=== PATIENT | female | born 1955 | race Caucasian/White ===

== ENCOUNTER 2021-06-24 13:52 | Outpatient (CLI) | payer BC, SELFPAY ==
--- NOTE | ~2021-06-24 | DEXA_ITS ---
Bone Density Report Name: Brynn Whiting Age: 66 Sex: Female Ethnicity: White Date of : 1955 Indication: postmenopausal; Referring Provider: Munira Hart Study: Bone densitometry was performed. Exam Date: June 24, 2021 Accession number: [id number] Bone Density: Region BMD T-score Z-score Classification AP Spine (L1-L4) 1.059 0.1 1.9 Normal Femoral Neck (Left) 0.834 -0.1 1.4 Normal Total Hip (Left) 1.034 0.8 2.0 Normal Total Hip Bilateral Avg 1.015 0.6 1.8 Normal Femoral Neck (Right) 0.813 -0.3 1.2 Normal Total Hip (Right) 0.994 0.4 1.6 Normal World Health Organization criteria for BMD impression classify patients as: Normal (T-score at or above -1.0), Osteopenia (T-score between -1.0 and -2.5), or Osteoporosis (T-score at or below -2.5). 10-year Fracture Risk: FRAX not reported because: All T-scores for Spine Total, Hip Total, Femoral Neck at or above -1.0 Previous Exams: Region Exam Age BMD T-score BMD Change BMD Change Date g/cm2 vs Baseline vs Previous AP Spine(L1-L4) 06/24/2021 66 1.059 0.1 -0.060(-5.4%)# -0.060(-5.4%)# 08/14/2009 54 1.119 0.7 Total Hip(Left) 06/24/2021 66 1.034 0.8 0.002(0.2%)# 0.002(0.2%)# 08/14/2009 54 1.032 0.7 Total Hip(Right) 06/24/2021 66 0.994 0.4 -0.005(-0.5%)# -0.005(-0.5%)# 08/14/2009 54 0.999 0.5 *Denotes significance at 95% confidence level, LSC for AP Spine = 0.022 g/cm2, LSC for Total Hip = 0.027 g/cm2 Clinical Information Provided by Patient: Patient maximum height was 62 Menopause Age: 51 Drinks caffeinated beverages Onset of menses at age 15 Number of children 3 Impression: The patient has normal bone mass. No significant bone loss was observed. Discussion: BONE DENSITY IS ABOVE THE MINIMUM DESIRABLE LEVEL AT ALL SKELETAL SITES TESTED. This patient?s bone mineral density is above the minimum desirable level (T-score -1.0 or better) at all sites measured. The patient should follow a healthful lifestyle (good nutrition with adequate calcium and vitamin D, and appropriate weight-bearing exercise). Follow-Up: Consider repeating this study in 5 years or sooner if there is some new clinical indication. Reported by: TRACY on 06/24/2021 2:17:00 PM. Reviewed, dictated and finalized at location ARosemary CRAWFORD
--- NOTE | ~2021-06-24 | MM_ITS ---
EXAMINATION: MM screening [facility] BI w gali HISTORY: Screening TECHNIQUE: Craniocaudal and mediolateral oblique 3-D tomosynthesis images were obtained and synthetic 2-D images were generated. CAD analysis was submitted and interpreted. COMPARISON: Comparison to multiple prior studies sequentially, with oldest reviewed study dated 06/2011. BREAST PARENCHYMAL COMPOSITION: There are scattered areas of fibroglandular density. FINDINGS: There is no evidence of suspicious mass, calcification, or architectural distortion to sugg est malignancy in either breast. There has been no suspicious interval change. IMPRESSION: 1. No mammographic evidence of malignancy. 2. Recommend routine screening mammography in one year. BI-RADS Category 1: Negative Reviewed, dictated and finalized at location A.
== END 2021-06-24 13:53 | disposition home or self-care (01) ==
PROVIDERS: PCP Family Medicine Sports Medicine; Visit Provider Obstetrics & Gynecology
DX: Z12.31 Encounter for screening mammogram for malignant neoplasm of breast (principal); M81.0 Age-related osteoporosis without current pathological fracture
CPT/HCPCS: 77063; 77067; 77080

== ENCOUNTER 2023-07-26 09:46 | Outpatient (CLI) | payer BC, SELFPAY ==
--- NOTE | ~2023-07-26 | MM_ITS ---
EXAMINATION: MM screening [facility] BI w gali HISTORY: Screening mammogram TECHNIQUE: Craniocaudal and mediolateral oblique 3-D tomosynthesis images were obtained and synthetic 2-D images were generated. CAD analysis was submitted and interpreted. COMPARISON: 06/24/2021 bilateral screening mammogram BREAST PARENCHYMAL COMPOSITION: There are scattered areas of fibroglandular density. FINDINGS: There is no evidence of suspicious mass, calcification, or architectural distortion to sugg est malignancy in either breast. There has been no suspicious interval change. IMPRESSION: 1. No mammographic evidence of malignancy. 2. Recommend routine screening mammography in one year. BI-RADS Category 1: Negative Reviewed, dictated and finalized at location A.
== END 2023-07-26 09:47 | disposition home or self-care (01) ==
PROVIDERS: PCP Family Medicine Sports Medicine; Visit Provider Obstetrics & Gynecology
DX: Z12.31 Encounter for screening mammogram for malignant neoplasm of breast (principal)
CPT/HCPCS: 77063; 77067

== ENCOUNTER 2024-12-13 09:43 | Outpatient (CLI) | payer BC, SELFPAY ==
--- NOTE | ~2024-12-13 | MM_ITS ---
EXAMINATION: MM screening [facility] BI w gali HISTORY: Screening TECHNIQUE: Craniocaudal and mediolateral oblique 3-D tomosynthesis images were obtained and synthetic 2-D images were generated. CAD analysis was submitted and interpreted. COMPARISON: Comparison to multiple prior studies sequentially, with oldest reviewed study dated 06/24. BREAST PARENCHYMAL COMPOSITION: Not dense: There are scattered areas of fibroglandular density. FINDINGS: There is no evidence of suspicious mass, calcification, or architectural distortion to sugg est malignancy in either breast. There has been no suspicious interval change. IMPRESSION: 1. No mammographic evidence of malignancy. 2. Recommend routine screening mammography in one year. BI-RADS Category 1: Negative Reviewed, dictated and finalized at location A. [facility]
--- OUTSIDE RECORDS SUMMARY | 2024-12-13 10:20 | XMS_ITS | Encounter Summary ---
Author Organization [facility] Address [address] [place] [address] Care Team Providers Care Quilt Stuffer Name Role Phone Unavailable Primary Care Provider Unavailabl e Encounter Details Date Type Department Care Team (Late st Contact Info) Description 11/02/2018 Lab Requisition [facility] [address] [place] [id number] Tawanda Delgadillo MD [address] [place] [address] Social History Tobacco Use Types Packs/Day Years Used Date Smoking Tobacco: Never Assessed Sex and Gender Information Value Date Recorded Sex Assigned at Not on file Gender Identity Not on file Sexual Orientation Not on file documented as of this encounter Plan of Treatment Not on file documented as of this encounter Procedures Procedure Name Priority Date/Time Associated Diagnosis Comments DERMATOPATHOLOGY Routine 11/01/2018 12:0 0 AM AUTOMOBILE MECHANIC HELPER documented in this encounter Results * DERMATOPATHOLOGY (11/01/2018 12:00 AM AUTOMOBILE MECHANIC HELPER) Case Report Dermatopathology Report ? Case: [id number] ? Authorizing Provider: ??Tawanda Delgadillo MD ?Collected: ? 11/01/2018 12:00 AM ? Pathologist: ? Malika Guadarrama MD ? Received: ?11/02/2018 12:36 PM ? Specimen: ?Skin, above left brow ? 11:52 AM [facility]ERMAT[facility] Final Diagnosis Specimen A. SKIN, above left brow: BENIGN VERRUCOUS KERATOSIS (L82.1) 11:52 AM [facility]MAT[facility] Clinical History R/O ISK vs BCC. 11:52 AM [facility] Gross Description Specimen A: Received is one formalin filled container labeled with the patient's name and designated above left brow. The specimen consists of a shave biopsy measuring [id number]. Jar 0. 11:52 AM [facility]MAT[facility] Microscopic Description Specimen A. SKIN, above left brow: Sections show hyperkeratosis, papillomatosis, hypergranulosis, and acanthosis. These histological findings can be seen in a verruca vulgaris or a seborrheic keratosis. 11:52 AM [facility] Disclaimer An external and internal positive and negative controls are appropriate for the histochemical, immunohistochemical and immunofluorescence stain(s) in this case (if any), except where stated explicitly. The performance characteristics of the stain(s) cited in this report were developed and its performance characteristic determined by the Dermatopathology Laboratory at [facility]. These tests need not be, and therefore are not, approved by the [place] Food and Drug Administration. The tests are used for clinical purposes. Billing Codes Specimen Charges Stain Charges 09701 1 11:52 AM [facility] Embedded Images 11:52 AM [facility]MAT[facility] Pathology/Cytolog y TISSUE SPECIMEN FROM SKIN / Unknown 11/01/2018 11/02/2018 12:36 PM AUTOMOBILE MECHANIC HELPER Tawanda Delgadillo MD LAB - PATHOLOGY/CYTO LOGY ORDERABLES DERMATOPATHOLOGY LABORATORY [facility] - Department of Dermatology [facility], 5th Floor Lab [address] [phone] documented in this encounter Visit Diagnoses Not on filedocumented in this encounter
--- OUTSIDE RECORDS SUMMARY | 2024-12-13 10:20 | XMS_ITS | Clinical Summary ---
Author Organization [facility] Address [address] [place] [address] Care Team Providers Care Music Store Manager Name Role Phone Unavailable Primary Care Provider Unavailabl e Source Comments [facility],non-owned Affiliates and Associated Physician Practices is amultiple site organization consisting of ambulatory clinics and hospital sitesin [place], [place], [place] and [place]. This disclosure is being madepursuant to the Care Everywhere program and may not contain all information available regarding this patient. Last updated 18.[facility] [employer] Social History Tobacco Use Types Packs/Day Years Used Date Smoking Tobacco: Never Assessed Sex and Gender Information Value Date Recorded Sex Assigned at Not on file Gender Identity Not on file Sexual Orientation Not on file Plan of Treatment Health Maintenance Due Date Last Done Comments BONE DENSITY TESTING 1955 COLOGUARD (AGES 45-75) - COL ON CA SCREENING 1955 COLON MONITORING 1955 COLONOSCOPY - COLON CA SCREENING 1955 CT COLONOGRAPHY - COLON CA SCREENING 1955 Colorectal Cancer Screening 1955 FIT - COLON CA SCREENING 1955 FLEX SIG - COLON CA SCREENING 1955 LIPID TESTING 1955 MAMMOGRAM 1955 HEPATITIS C SCREENING 05/31/1974 DTAP/TDAP/TD VACCINES (1 - Tdap) 1975 PNEUMOCOCCAL VACCINE 50+ (1 of 1 - PCV) 2006 ZOSTER VACCINE (1 of 2) 2006 COVID-19 VACCINE (1 - 2023-2 5 season) 2024 INFLUENZA VACCINE (#1) 2024 DEPRESSION SCREENING 11/14/2024 Respiratory Syncytial Virus (RSV) Vaccine Pt: or over 60 yrs (1 - 1-dose 75+ series) 2031 HEPATITIS B VACCINE Aged Out No longe r eligible based on patient's age to complete this topic HIB VACCINE Aged Out No longer eligi ble based on patient's age to complete this topic HPV VACCINE Aged Out No longer eligi ble based on patient's age to complete this topic MENINGOCOCCAL (Group B) VACCINE Aged Out No longer eligible based on patient's age to complete this topic MENINGOCOCCAL VACCINE Aged Out No tonja ana maria eligible based on patient's age to complete this topic
--- OUTSIDE RECORDS SUMMARY | 2024-12-13 10:20 | XMS_ITS | Continuity of Care Document ---
Author Organization [facility] Address [address] [place] [address] Phone Care Team Providers Care Gameplay Engineer Name Role Phone Araceli Montoya MD Unavailable Unavailable Allergies, Adverse Reactions, Alerts Substance Reaction Status Criticality Sulfa (Sulfonamide Antibiotics) Active No Information Medications Medication Instructions Dosage Effective Dates (start - stop) Status Comments sumatriptan 25 mg tablet take 1 tablet by oral route after onset of migraine; may repeat after 2 hours if headache returns,not to exceed 200mg in 24hrs 25 MG - Active Procedures Procedure Date OFFICE [id number] X-RAY EXAM OF KNEE, A/P & LAT 0 OFFICE [id number] Advance Directives Directive Yes / No Effective Date File Name No Information Encounters Encounter Description Practice Location Reason(s) For Visit Diagnoses Date Provider Providers Copied on Encounter OFFICE [id number] ANDED [facility], [address], [place], [place], [id number], [place] tel:[phone] [facility] knee (chief complaint) Pain of right patella Lindsay Charles. [address], [place], [place], [id number] , [place]. tel:[phone] Referring Provider: [address], [place], [address] . tel:[phone] OFFICE [id number] JORGE [facility], [address], [place], [place], [id number], tel:[phone] [facility] Right Knee (chief complaint) Pain of right patellaPlantar fasciitis of right footAcute low back pain without sciatica, unspecified back pain laterality Lindsay Charles. [address], [place], [place], [address] , [place]. tel: [phone] Referring Provider: Natalya [address], [place], [address] . tel:[phone] Family History Family Member Type Diagnosis Age At Onset No Information Payers Payer name Insurance type Covered democrat ID Ronel andino(s) [facility] ACCESS BL [id number] Social History Type Description Quantity Date Captured Comments Alcohol Use Details Caffeine Use Details Unknown Tobacco Use Status Current non-smoker Smoking Status Never smoker Sex Female Sexual Orientation Straight or heterosexual Gender Identity Female Chief Complaint And Reason For Visit From encounter dated '05/22/2020 10:10'. knee (chief complaint). Description: Brynn Whiting is a 64 year old female. Here for exam, eval and followup of right knee with anterior 3/10 aching pain and reports feeling better after physical therapy without pain, swelling or problems. Continue home exercises. F/U as needed. Reason For Referral Reason For Referral No Information Plan Of Treatment Date Type Action Status Referral Ordered: X-RAY EXAM OF KNEE, ONE OR TWO VIEWS Right ordered Referral Referred To: Physical Therapy [address] [facility]
[address] [place], [phone] Ordered: Referrals: Physical Therapy. Location: [facility] [place]. Evaluate and treat - Level 2 ordered History Of Present Illness Encounter Date Complaint History Of Prese nt Illness knee Brynn Whiting is a 64 year old female. Here for exam, eval and followup of right knee with anterior 3/10 aching pain and reports feeling better after physical therapy without pain, swelling or problems. Continue home exercises. F/U as needed. Right Knee Here for examina tion, evaluation and treatment of recent right knee pain 3/10, above the knee cap, with aching intermittently. 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 Occasional low back pain and plantar fasciitis.X-rays right knee - minimal DJD. Screws well-fixed and positioned from ACL. Impression - patellar pain. Plan - outpatient physical therapy. F/U in four weeks. Functional Status Date Functional Assessmen t No Information Instructions Date Instruction Additional Infor mation Problem resolved wit h exercises and therapy F/U as needed Related to Pain of right patella Disease process See #1 plan Related to Acute low back pain without sciatica, unspecified back pain laterality See #1 plan Related to Plant ar fasciitis of right foot Physical therapy F/U 4 weeks Rel ated to Pain of right patella Disease process Assessments Type Assessment Date assessment Pain of right patella 0 Mental Status Date Cognitive Assessment Orientation - [place] ed to time, place, person, situation. Patient Care Teams Name Effective Dates (start - stop) Status Members No Information
--- OUTSIDE RECORDS SUMMARY | 2024-12-13 10:20 | XMS_ITS | Encounter Summary ---
Author Organization [facility] Address [address] [place] [address] Care Team Providers Care Compotype Operator Name Role Phone Unavailable Primary Care Provider Unavailabl e Encounter Details Date Type Department Care Team (Late st Contact Info) Description 03/03/2022 Lab Requisition [facility] [address] [place] [phone] Tawanda Delgadillo MD [address] [place] [address] Social History Tobacco Use Types [...] Priority Date/Time Associated Diagnosis Comments DERMATOPATHOLOGY Routine 03/02/2022 12:0 0 AM CDT documented in this encounter Results * DERMATOPATHOLOGY (03/02/2022 12:00 AM CDT) Case Report Dermatopathology Report ? Case: [id number] ? Authorizing Provider: ??Tawanda Delgadillo MD ?Collected: ? 03/02/2022 12:00 AM ? Ordering Location: ? [facility] ?Received: ?03/03/2022 02:44 PM ? Pathologist: ? Carmelina Forrest MD ? Specimen: ?Skin, left medial superior cheek below eye ? 4:47 PM CDT DERMATOPATHOLOGY LABORATORY Final Diagnosis Specimen A. SKIN, left medial superior cheek below eye: SEBORRHEIC KERATOSIS, CLONAL TYPE (L82.1) 4:47 PM CDT DERMATOPATHOLOGY LABORATORY Clinical History R/O ISK, BCC, other. 4:47 PM CDT DERMATOPATHOLOGY LABORATORY Gross Description Specimen A: Received is one formalin filled container labeled with the patient's name and designated left medial superior cheek below eye. The specimen consists of a shave biopsy measuring [id number]. Jar 0. 4:47 PM CDT DERMATOPATHOLOGY LABORATORY Microscopic Description Specimen A. SKIN, left medial superior cheek below eye: Sections show a proliferation of keratinocytes with overlying hyperkeratosis. Aggregates of keratinocytes with abundant pale-staining cytoplasm appear demarcated from surrounding basaloid keratinocytes. 2 4:47 PM CDT DERMATOPATHOLOGY LABORATORY Disclaimer An external and internal positive and negative controls are appropriate for the histochemical, immunohistochemical and immunofluorescence stain(s) in this case (if any), except where stated explicitly. The performance characteristics of the stain(s) cited in this report were developed and its performance characteristic determined by the Dermatopathology Laboratory at [facility], directed by Dr. Shmuel Perez. These tests need not be, and therefore are not, approved by the [place] Food and Drug Administration. The tests are used for clinical purposes. Billing Codes Specimen Charges Stain Charges 50323 1 2 4:47 PM CDT DERMATOPATHOLOGY LABORATORY Embedded Images 2 4:47 PM CDT DERMATOPATHOLOGY LABORATORY Pathology/Cytolog y TISSUE SPECIMEN FROM SKIN / Unknown 03/02/2022 03/03/2022 2:44 PM CDT Tawanda Delgadillo MD LAB - PATHOLOGY/CYTO LOGY ORDERABLES DERMATOPATHOLOGY LABORATORY [facility] - Department of Dermatology [facility] [address] [place] [address], [address] [phone] documented in this encounter Visit Diagnoses Not on filedocumented in this encounter
--- OUTSIDE RECORDS SUMMARY | 2024-12-13 10:20 | XMS_ITS | Referral Summary ---
Author Organization [facility] Address [address] [place] [address] Care Team Providers Care Counselor Supervisor Name Role Phone Unavailable Primary Care Provider Unavailabl e Source Comments [facility],non-owned Affiliates and Associated Physician Practices is amultiple site organization consisting of ambulatory clinics and hospital sitesin [place] and [place]. This disclosure is being madepursuant to the Care Everywhere program and may not contain all information available regarding this patient. Last updated 18.[facility] Social History Tobacco Use Types Packs/Day Years Used Date Smoking Tobacco: Never Assessed Sex and Gender Information Value Date Recorded Sex Assigned at Not on file Gender Identity Not on file Sexual Orientation Not on file Plan of Treatment Not on file
--- OUTSIDE RECORDS SUMMARY | 2024-12-13 10:20 | XMS_ITS | Data Portability ---
Author Organization [facility] Address [address] [address] [address] Care Team Providers Care Relocation Commissioner Name Role Phone ERIKAJILLIAN Primary Care Provider [phone] Assessment Encounter Date Assessment Date Assessment LastModified by Organization Details LastModified Time 05/11/2021 05/11/2021 healthy female exam/menopause patient declines std testing pap done mammogram ordered and encouraged colonoscopy due 2030 dexa ordered and encouraged Encouraged weight bearing exercise and 1500mg daily of Calcium with Vitamin D FU 1 year or prn [email or web address] Not available 05/11/2021 16:32:59 07/25/2023 07/25/2023 healthy female exam/menopause patient declines std testing pap due next year mammogram tomorrow colonoscopy due 2030 dexa due 2025 Encouraged weight bearing exercise and 1500mg daily of Calcium with Vitamin D FU 1 year or prn [email or web address] Not available 07/25/2023 12:14:32 07/27/2024 07/27/2024 Annual gynecological exam performed. Patient will come back in a year unless there are new symptoms. [email or web address] Not available 07/27/2024 09:35:07 Plan of Treatment Reminders Order Date Submit Date Provider Last Modified By Organization Details Last Modified Time Details Appointments None recorded. Lab None recorded. Referral None recorded. Procedures None recorded. Surgeries None recorded. Imaging MAMMO, screening, digital, bilateral 2023 024 [facility], [address], [place], [address], 04:02:21 Medication Orders None recorded. Patient TargetsNo targets recorded. Patient InstructionsNo instructions recorded. Reason for Referral None Reported. Results Created Date Observation Date Name Description Value Unit Range Abnormal Flag Note LastModifiedBy Organization Detail LastModifiedTime 05/11/20 21 05/11/2021 IMAGE GUIDE D PAP AND HPV REGAR DLESS image guided Pap, HPV regardless of Pap result SEE RESULT S BELOW CASE REPOR T: Cytol ogy Gynec ologi mina Repor t Case: [id number] Autho genny sutherland Provi aicha: Munira Brambila MD Colle cted: 05/11 1746 Order ing Locat ion: [place] [facility] Recei chace: 05/12 0129 First Scree n: Bhargav Bruno, CT Speci men: Glenn rodriguez Pap - Image d, Cervi x STATE MENT OF ADEQU ACY: Satis facto ry for evalu ation Trans forma tion zone compo nent prese nt FINAL DIAGN OSIS: Negat dago for Intra epith elial Lesio n or Radha medeiros Elect adelia vasquez gerson d by Bhargav Bruno, CT on 2020 at 2:09 PM ----- ----- ----- ----- ----- ----- ----- ----- ----- ----- ----- ----- ----- ----- ----- ----- ----- ---- HPV RESUL TS: HPV mRNA E6/E7 : No HPV mRNA Detec daysi NOTE: This high risk HPV mRNA assay detec ts fourt een high- risk HPV types (16, 18, 31, 33, 35, 39, 45, 51, 52, 56, 58, 59, 66, 68) witho ut diffe renti ation . CHART ABLE COMME NT: Note: This speci men was revie wed by a Cytot echno logis t and/o r Patho logis t (as indic ated in this repor t) after evalu ation using the Thinp rep Imagi ng Syste m. CLINI MINA INFOR MATIO N: Menst rual Statu s: LMP (if appli cable ): Clini mina Histo ry/Pr eviou s Pap: Type of Neopl joe (if appli cable ): Other Histo ry: Hormo jessy (if appli cable ): PAP EDUCA ELAINE L NOTE: The Pap Test is a scree jennifer test with an inher ent false negat dago rate. Liqui d-bas e sampl ing may decre ase, but will not elimi [place], false negat dago resul ts. A negat dago resul t does not precl ude the prese nce and/o r devel opmen t of disea se, since the prese nce of abnor mal cells in the sampl e depen ds on the locat ion of the lesio n and sampl ing techn ique. Marisa nued regul ar scree jennifer is the best metho d of cance r preve ntion . If repor daysi cytol ogic findi ng do not corre late with physi mina and/o r histo rical findi ngs, furth er inves tigat ion is recom ahmet d, as clini yumiko warra nted. Not Available [facility] (Lab) [address], [place], [address], 05/12/2021 15:52:33 06/24/20 21 06/24/2021 MAMMO , scree jennifer, bilat eral No observ ation record ed. [address], [address], 06/25/2021 20:13:46 06/25/20 21 06/24/2021 bone densi ty No observ ation record ed. [address], [address], 06/26/2021 20:54:43 07/26/2007/26/2023 MAMMO , scree jennifer, bilat eral No observ ation record ed. [address], [address], 08/04/2023 13:40:45 Result Notes None recorded. Problems Name Problem SNOMED Code Status Onset Date Resolution Date Notes Provider Name and Address Organization Details Recorded Time Migraine with aura 8399903 Active 021 Munira Hart MD [address], [place], [address], [facility] 1 16:31:28 Problem Notes None recorded. Procedures Surgical History Date Name Laterality Status Provider Name and Address Organization Details Recorded Time 2 Date of Last Colonoscopy completed [facility] 07/26/2024 14:18:49 1 Most Recent Bone Density completed [facility] 07/25/2023 09:30:01 1 Date of Last Pap Smear completed [facility] 07/26/2024 14:19:35 6 Date of Last Mammogram completed [facility] 07/26/2024 14:18:49 Tubal Ligation completed [facility] 05/11/2021 09:55:21 Imaging Results Imaging Date Name Status LastModified by Organiz ation Details LastModified Time 06/24/2021 MAMMO, screening, bilateral completed [address], [address], 06/25/2021 20:13:46 06/24/2021 bone density completed [address] [place] [address], [address], 06/26/2021 20:54:43 07/26/2023 MAMMO, screening, bilateral completed [address] [place] [address], [address], 08/04/2023 13:40:45 Procedure Notes None recorded. Medical Equipment None Reported. Allergies Allergen ID Allergen Name Allergen Category Reaction Reaction Severity Criticality Documentation Date Start Date Code Code System Note Provider Name and Address Organization Details Recorded Time 72761 Substance with sulfonami de structure and antibacte rial mechanism of action (substanc e) medicatio n Not available Not available Not available 05/11/2021 14295 8003 SNOMED Geraldine [facility] 1 09:55:09 Medications Name Sig Start Date Stop Date Status Note LastModified by Organization Details LastModified Time amoxicillin 500 mg capsule TAKE ONE CAPSULE BY MOUTH THREE TIMES DAILY UNTIL ALL TAKEN 07/26 completed Not Available Not Available Not Available hydrocodone 5 mg-acetamin ophen 325 mg tablet TAKE 1 TABLET BY MOUTH EVERY 4 TO 6 HOURS NEEDED FOR PAIN 07/26 completed Not Available Not Available Not Available dexamethaso ne sodium phosphate 4 mg/mL injection solution USE 1ML PER IONTOPHOR ESIS SESSION 2 TIMES PER WEEK FOR 6 WEEKS 07/25 completed Not Available Not Available Not Available sumatriptan active Not Available Not A vailable Not Available Suprep Bowel Prep Kit 17.5 gram-3.13 gram-1.6 gram oral solution MIX AND DRINK DIRECTED 05/11 completed Not Available Not Available Not Available 24Hour Allergy 07/25 completed Not Available Not Available Not Available Vitals Date Recorded Body height Body mass index (BMI) Body weight Systolic blood pressure Diastolic blood pressure Provider Name and Address Organization Details Last Updated DateTime 05/11/2021 157.48 cm 26.7 kg/m2 69012.49 g 130 mm[Hg] 84 mm[Hg] [facility] 1 15:50:25 Date Recorded Body height Body mass index (BMI) Body weight Systolic blood pressure Diastolic blood pressure Provider Name and Address Organization Details Last Updated DateTime 07/25/2023 157.48 cm 26.5 kg/m2 45013.89 g 135 mm[Hg] 86 mm[Hg] [facility] 3 11:28:29 Date Recorded Body height Body mass index (BMI) Body weight Systolic blood pressure Diastolic blood pressure Provider Name and Address Organization Details Last Updated DateTime 07/27/2024 157.48 cm 26.3 kg/m2 18540.3 g 139 mm[Hg] 74 mm[Hg] Daniela Larsonen [facility] 09:35:53 Social History Question Answer Notes LastModified by Organizat ion Details LastModified Time Tobacco Smoking Status Never Smoker Geraldine Cuadra ml, [facility] 05/11/2021 09:55:49 Do You Have An Advance Directive? No Information n ot available 07/26/2024 What Is Your Level Of Alcohol Consumption? None Information not available 05/11/2021 Are You Blind Or Do You Have Difficulty Seeing? No [email or web address] Information n ot available 07/26/2024 What Is Your Level Of Caffeine Consumption? Moderate [email or web address] Information not available 07/26/2024 How Much Tobacco Do You Chew? None [email or web address] Information not available 07/26/2024 In The 14 Days Before Symptom Onset, Have You Had Close Contact With A Laboratory-confirm ed COVID-19 While That Case Was Ill? No [email or web address] Information n ot available 07/27/2024 In The 14 Days Before Symptom Onset, Have You Had Close Contact With A Person Who Is Under Investigation For COVID-19 While That Person Was Ill? No [email or web address] Information not available 07/27/2024 Have You Been To An Area Known To Be High Risk For COVID-19? No [email or web address] Information not available 07/26/2024 Are You Deaf Or Do You Have Serious Difficulty Hearing? No Information not available 07/26/2024 What Is The Highest Grade Or Level Of School You Have Completed Or The Highest Degree You Have Received? LV89477-2 [email or web address] Information not available 07/26/2024 What Is Your Occupation? Retired [email or web address] Information not available 07/26/2024 Are There Any Guns Present In Your Home? Yes [email or web address] Information not available 07/26/2024 Do You Use Protection During Sex? No [email or web address] Information not available 07/26/2024 Do You Use Your Seat Belt Or Car Seat Routinely? Yes [email or web address] Information not available 07/26/2024 Do You Have Smoke And Carbon Monoxide Detectors In Your Home? Yes [email or web address] Information not available 07/26/2024 How Much Tobacco Do You Smoke? No [email or web address] Information not available 07/26/2024 Do You Feel Stressed (tense, Restless, Nervous, Or Anxious, Or Unable To Sleep At Night)? [id number] Information not available 07/26/2024 Do You Use Any Illicit Or Recreational Drugs? No Information not available 05/11/2021 Do You Use Sunscreen Routinely? Yes [email or web address] Information not available 07/26/2024 Has Tobacco Cessation Counseling Been Provided? No Information not available 05/11/2021 Have You Used IV Drugs? No [email or web address] Information not available 07/26/2024 Do You Or Have You Ever Used Any Other Forms Of Tobacco Or Nicotine? No Information not available 05/11/2021 Sex: Unknown Functional Status Question Answer Note LastModified by Organizat ion Details LastModified Time Do you have difficulty walking or climbing stairs? No Information not available 07/27/2024 Are you able to walk? [email or web address] Information not available 07/26/2024 Are you able to care for yourself? Yes [email or web address] Information not available 07/27/2024 Do you have difficulty dressing or bathing? No [email or web address] Information not available 07/27/2024 What is your exercise level? Moderate Information not available 07/26/2024 Mental Status None recorded. Family History Nothing Reported. Medical History Condition Response Allergies (Food, seasonal, environmental ) N Other N Breast Cancer N Drug/Latex Allergies/Reactions N Blood Transfusion N Dermatologic Disorders N Lung Disease N Defects or Inherited Disease N Breast Problem N Gestational Diabetes N Hematologic disorders N Anesthesia Complications N History of STI N Deep Vein Thrombosis N Polycystic ovary syndrome N Anxiety Disorder N Autoimmune disease N Arthritis N Infertility N Polyps N Acid Reflux (GERD) N History of abnormal pap N Cancer N Stroke N Varicosities N Neurologic/Epilepsy N Endometriosis N High Cholesterol N Headaches N Fibromyalgia N Kidney Disease N Heart Problems N Kidney or Bladder Problems N Thyroid Problems N GI Problems N Eating Disorder N Anemia N Art (IVF or FET) N Psychiatric Illness N Ovarian Cancer N Diabetes N Pulmonary (TB, Asthma) N Hepatitis/Liver Disease N No Past Medical History N Eczema N Urinary Tract Infection N Abuse/Domestic Violence N Asthma N Trauma/Violence N Depression/ depression N Heart Disease N Pre-Eclampsia N Hypertension N Osteoporosis N Thrombophilias N Gynecological History Statement/Question Response Date of Last Mammogram 11/14/2015 Date of LMP 2006 On BCP's at Conception? N N Was last menstrual period normal Y STIs/STDs N HPV Vaccine N Duration of Flow (days) 7 Current Control Method Tubal Ligat ion Age at First Child 22 If Post Menopausal, Age at Menopause 51 Date of Last Colonoscopy 02/12/2022 Most Recent Bone Density 06/24/2021 Sexually Active? N Age of first menstrual cycle 15 Date of Last Pap Smear 05/11/2021 Sexual Problems? N LMP Approximate N Obstetrics History GPAL:G 3 P 3 0 0 3 Type Value Full Term 3 Living 3 Total 3 Past Encounters Encounter ID Performer Location Encounter Start Date Encounter Closed Date Diagnosis/Indication Diagnosis SNOMED-CT Code Diagnosis ICD10 Code Diagnosis Note [id number] Munira Hart MD [facility] [address],[place] [address] 05/11/2021 15:24:10 05/11/2021 16:36:43 [id number] Munira Hart MD [facility] [address],[place] [address] 07/25/2023 11:23:18 07/25/2023 12:38:57 Gynecologic examination 44250618 Z01.419 Z11.51 Menopause present 073644 006 N95.1 [id number] JODI ALMANZAR MD [facility] [address],[place] [address] 07/27/2024 09:28:01 07/27/2024 09:59:54 Screening mammography 41729118 Z12.31 Gynecologi c examination 69195271 Z01.419 [facility]- Cervical cancer screening: Pap smear not indicated- Breast cancer screening: mammogram ordered- HPV immunizati on: does not qualify- STD testing: declined- hereditary cancer screening: does not qualify for testing Health Concerns Section Related Observation LastModified by Organization Detai ls LastModified Time None Recorded Concern Status LastModified by Organization Details LastModified Time None Recorded Advance Directives Directive N: Payers Encounter Date Sequence Insurance Name Policy Number Policy Dodd Covered Member ID Dodd Member ID Guarantor Name 05/11/2021 1 [place] [id number] Tawanda Whiting [id number] Brynn Whiting 07/25/2023 1 [place] [id number] Tawanda Whiting [id number] Brynn Whiting 07/27/2024 1 [place] [id number] Tawanda Whiting [id number] Brynn Whiting Notes Date Note Type Note Provider Name and Address Organization Details Recorded Time 05/11/2021 text/html Patient is a 65y o who presents for an annual exam. No concerns. last pap- 2015. all normal mammo-2016 colonoscopy-04/2021 , 10 years dexa-none menopauseage 51- sexually active-n seatbeltsy- exercise-y depression-denies domestic violence-denies tobacco-n concerns- Munira Hart MD [address], [place], [address], [facility] 05/11/2021 16:33:18 07/25/2023 text/html Patient is a 68y o who presents for an annual exam. terrie 51yo, no bleeding. no concerns. last pap-04/2021 mammo-06/2021,, has scheduled tomorrow colonoscopy-2020, 10 years dexa-06/2021 normal sexually active-not anymore seatbelts-y exercise-y depression-denies domestic violence-denies tobacco-n concerns-some palpitations lately, lasting short while Munira Hart MD [address], [place], [address], [facility] 07/25/2023 12:14:52 07/27/2024 text/html Presents today f or her annual well-woman exam. Denies abnormal vaginal discharge. She is not sexually active and denies dyspareunia. She has not noticed any changes or masses in her breasts. Last mammogram 07/2023 [facility] 1. Menopausal, no PMB. JODI ALMANZAR MD [address], [place], [address], [place] [facility] 07/27/2024 09:58:45 OBGyn Episode Ob Episode Information Episode Created Date Number of Fetuses Patient Bloodtype Patient rh Status Prepregnancy Weight lbs Domestic Partner Domestic Partner Phone Father Name Regulatory Submissions Associate Status 05/11/20 21 1 CLOSED Fetus Data First Name Last Name Admitted to NICU Weight (g) Sex Living Outcome Pediatric Complications Fetus ID Race Codes Race Delivery Type 3175.14 4 M Full Term [id number] Vaginal Delivery Macario Calculation Initial Macario Date Initial Exam Date Initial Exam Provider Initial Ultrasound Date Last Menstrual Period Date Ultra Sound Weeks Gestation 0 Eighteen To Twenty Week Macario Update Ultra Sound Date Fundal Height At Umbil Quickening Date Ultra Sound Latest Weeks Gestation Final Macario Confirmed By Final Macario Confirmed Date Final Macario Date Ultra Sound Latest Days Gestation 0 0 Menstrual History Last Menstrual Date Menses Monthly On Bcp Conception Prior Menses Frequency Hcg Plus Date Menarche Onset Age Delivery Information Delivery Date Delivery Type Labor Anesthesia Weeks Gestation Incision Type Labor Labor Length Hrs Delivered By Post Complications Tubal Sterilization Discharge Date Comments 0 40 Discharge Information Feeding Method Contraceptive Method Maternal HG B and HCT Levels Ob Episode Information Episode Created Date Number of Fetuses Patient Bloodtype Patient rh Status Prepregnancy Weight lbs Domestic Partner Domestic Partner Phone Father Name Regulatory Submissions Associate Status 05/11/20 21 1 CLOSED Fetus Data First Name Last Name Admitted to NICU Weight (g) Sex Living Outcome Pediatric Complications Fetus ID Race Codes Race Delivery Type 4082.32 8 M Full Term [id number] Vaginal Delivery Macario Calculation Initial Macario Date Initial Exam Date Initial Exam Provider Initial Ultrasound Date Last Menstrual Period Date Ultra Sound Weeks Gestation 0 Eighteen To Twenty Week Macario Update Ultra Sound Date Fundal Height At Umbil Quickening Date Ultra Sound Latest Weeks Gestation Final Macario Confirmed By Final Macario Confirmed Date Final Macario Date Ultra Sound Latest Days Gestation 0 0 Menstrual History Last Menstrual Date Menses Monthly On Bcp Conception Prior Menses Frequency Hcg Plus Date Menarche Onset Age Delivery Information Delivery Date Delivery Type Labor Anesthesia Weeks Gestation Incision Type Labor Labor Length Hrs Delivered By Post Complications Tubal Sterilization Discharge Date Comments 4 40 Discharge Information Feeding Method Contraceptive Method Maternal HG B and HCT Levels Ob Episode Information Episode Created Date Number of Fetuses Patient Bloodtype Patient rh Status Prepregnancy Weight lbs Domestic Partner Domestic Partner Phone Father Name Regulatory Submissions Associate Status 05/11/20 21 1 CLOSED Fetus Data First Name Last Name Admitted to NICU Weight (g) Sex Living Outcome Pediatric Complications Fetus ID Race Codes Race Delivery Type 3628.73 6 F Full Term [id number] Vaginal Delivery Macario Calculation Initial Macario Date Initial Exam Date Initial Exam Provider Initial Ultrasound Date Last Menstrual Period Date Ultra Sound Weeks Gestation 0 Eighteen To Twenty Week Macario Update Ultra Sound Date Fundal Height At Umbil Quickening Date Ultra Sound Latest Weeks Gestation Final Macario Confirmed By Final Macario Confirmed Date Final Macario Date Ultra Sound Latest Days Gestation 0 0 Menstrual History Last Menstrual Date Menses Monthly On Bcp Conception Prior Menses Frequency Hcg Plus Date Menarche Onset Age Delivery Information Delivery Date Delivery Type Labor Anesthesia Weeks Gestation Incision Type Labor Labor Length Hrs Delivered By Post Complications Tubal Sterilization Discharge Date Comments 7 41 Discharge Information Feeding Method Contraceptive Method Maternal HG B and HCT Levels
--- OUTSIDE RECORDS SUMMARY | 2024-12-13 10:21 | XMS_ITS | Patient Health Summary ---
Author Organization [facility] Address [address] [place] [address] Care Team Providers Care Director Of Outpatient Services Name Role Phone Unavailable Primary Care Provider Unavailabl e Note from [facility],non-owned Affiliates and Associated Physician Practices is amultiple site organization consisting of ambulatory clinics and hospital sitesin [place], [place], [place] and [place]. This disclosure is being madepursuant to the Care Everywhere program and may not contain all information available regarding this patient. Last updated 18.[facility] Social History Tobacco Use Types Packs/Day Years Used Date Smoking Tobacco: Never Assessed Sex and Gender Information Value Date Recorded Sex Assigned at Not on file Gender Identity Not on file Sexual Orientation Not on file Procedures * DERMATOPATHOLOGY(Performed 03/02/2022) * DERMATOPATHOLOGY(Performed 11/01/2018) * DERMATOPATHOLOGY(Performed 03/16/2017) * DERMATOPATHOLOGY(Performed 10/21/2015) * DERMATOPATHOLOGY(Performed 09/19/2012) Results * DERMATOPATHOLOGY (03/02/2022 12:00 AM CDT) Only the most recent of5 resultswithin the time period is included. Case Report Dermatopathology Report ? Case: [id number] ? Authorizing Provider: ??Tawanda Delgadilol MD ?Collected: ? 03/02/2022 12:00 AM ? Ordering Location: ? [facility] Care DermPath Lab ?Received: ?03/03/2022 02:44 PM ? Pathologist: ? Carmelina Forrest MD ? Specimen: ?Skin, left medial superior cheek below eye ? 2 4:47 PM CDT DERMATOPATHOLOGY LABORATORY Final Diagnosis Specimen A. 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 2 4:47 PM CDT DERMATOPATHOLOGY LABORATORY Gross Description Specimen A: Received is one formalin filled container labeled with the patient's name and designated left medial superior cheek below eye. The specimen consists of a shave biopsy measuring [id number]. Jar 0. 2 4:47 PM CDT DERMATOPATHOLOGY LABORATORY Microscopic Description [...] characteristic determined by the Dermatopathology Laboratory at [facility], directed by Dr. Shmuel Perez. These tests need not be, and therefore are not, approved by the [place] Food and Drug Administration. The tests are used for clinical purposes. Billing Codes Specimen Charges Stain Charges 42663 1 2 4:47 PM CDT DERMATOPATHOLOGY LABORATORY Embedded Images 2 4:47 PM CDT DERMATOPATHOLOGY LABORATORY Pathology/Cytolog y TISSUE SPECIMEN FROM SKIN / Unknown 03/02/2022 03/03/2022 2:44 PM CDT Tawanda Delgadillo MD LAB - PATHOLOGY/CYTO LOGY ORDERABLES DERMATOPATHOLOGY LABORATORY [facility] - Department of Dermatology [facility] [address] [place] [address], [address] [phone]
--- OUTSIDE RECORDS SUMMARY | 2024-12-13 10:21 | XMS_ITS | Patient Health Record ---
Author Organization [employer] Address [address] [facility] [address] [place] [address] Care Team Providers Care Veneer Jointer Helper Name Role Phone Jose Cedillo MD Primary Care Provider UnavailRajan Zayas Unavailable [phone] Reason For Referral No Information Plan Of Treatment No Information Insurance Providers Payer Name Payer Address Payer Phone Subscriber Number Group Number Insured Name Patient Relationship to Insured Coverage Start Date Coverage End Date Blue Access PPO E2 [address] [place] [address] [id number] nette Whiting Spouse - patient is the spouse of the insured
== END 2024-12-13 09:44 | disposition home or self-care (01) ==
PROVIDERS: PCP Family Medicine Sports Medicine; Visit Provider Obstetrics & Gynecology
DX: Z12.31 Encounter for screening mammogram for malignant neoplasm of breast (principal)
CPT/HCPCS: 77063; 77067